=== PATIENT | female | born 1955 | race Caucasian/White ===

== ENCOUNTER → 2017-01-12 | Outpatient (CLI) | payer BC ==
[~2017-01-12] VITALS: Ht 165.1 cm; Wt 90.7 kg
[~2017-01-12] MED LIST: CATHETER FLUSH 10 ML SYR IV PRN; REGADENOSON 0.4 MG/5 ML SYR (LEXISCAN) IV ONE
[2017-01-12 09:10] VITALS: BP 119/71
[2017-01-12 09:14] VITALS: BP 133/73
--- NOTE | 2017-01-13 07:44 | STRESS TEST ---
PROCEDURE PHYSICIAN: JENN MAK DATE OF PROCEDURE: 01/12/2017 LEXISCAN MYOVIEW STRESS TEST REPORT: REFERRING PHYSICIAN: Dr. Karla Rai. INDICATION FOR THE PROCEDURE: Atrial myxoma. BASELINE HEART RATE: 63 BASELINE BLOOD PRESSURE: 119/71 BASELINE EKG: Sinus rhythm with no ischemic changes. IN SUMMARY: The patient was injected with 9.97 mCi of technetium 99 Myoview and the resting images were obtained. Then the patient received 0.4 mg of Lexiscan followed by 27.9 mCi of technetium 99 Myoview. Throughout the test, there were no EKG changes. The resting and stress images were reviewed and compared in the short axis, horizontal long axis, and vertical long axis views. Review of the images showed breast attenuation with no significant ischemia or infarction. SSS is 4, SDS 4, TID value 1. On the gated images, the left ventricle appeared to be normal size with normal contractility. Calculated ejection fraction 79%. IN CONCLUSION: 1. The patient tolerated Lexiscan well. 2. Breast attenuation with no ischemia or infarction on SPECT images. 3. Normal left ventricular size with normal contractility. Calculated ejection fraction 79%. Job ID: [id number] Dictated Date: 01/12/2017 18:17:59 [employer] Reg[employer] Date: 01/13/2017 07:41:39 / [email or web address]
== END ==
LOC: CARD 07:27
PROVIDERS: ATTEND Internal Medicine Cardiovascular Disease
DX: D15.1 Benign neoplasm of heart (principal); I48.0 Paroxysmal atrial fibrillation; I49.5 Sick sinus syndrome; E66.9 Obesity, unspecified
CPT/HCPCS: 78452; 93017